=== PATIENT | male | born 1955 | race Caucasian/White ===

== ENCOUNTER 2017-04-13 20:20 | Emergency (ER) | payer BC ==
[~2017-04-13] VITALS: Ht 177.8 cm; Wt 86.8 kg
[~2017-04-13 20:20] MED LIST: ALEVE220 M2 PO; ALEVE220 MG PO; ASPIR-TRIN325 M1 PO; ATORVASTATIN CA80 MG PO; BACTRIM,SEPT1 TABLET PO; BAYER CHEWABLE81 MG PO; CHILDREN'S ASPI81 M1 PO; CILOSTAZOL100 MG PO; DIAZEPAM5 MG PO; Ecotrin PO; FLOMAX0.4 MG PO; GLIPIZIDE5 MG PO; GLUCOPHAGE1000 MG PO; GLUCOPHAGE500 MG PO; GLUCOTROL5 MG PO; Glucotrol PO; Habitrol,Nicoderm CQ TD; LEVITRA20 MG PO; LISINOPRIL40 MG PO; LISINOPRIL5 MG PO; LOPRESSOR25 MG PO; LORTAB 7.5/51 TABLET PO; LOSARTAN POTAS100 MG PO; METFORMIN HCL500 MG PO; METOPROLOL TART25 MG PO; NICOTINE PATCH1 EAC2 TD; NOHOMEMEDS; PEPTO BISMOL262 MG PO; PERCOCET 5/31 TABLET PO; PLAVIX75 MG PO; PRAVACHOL40 MG PO; PRAVACHOL80 MG PO; PRINIVIL20 MG PO; PROMETHAZINE HC25 M1 PO; TOPROL XL25 MG PO; TOPROL XL50 MG PO; TRADJENTA5 MG PO; VALIUM5 MG PO; WELLBUTRIN75 MG PO; Wellbutrin SR PO; ZESTRIL,PRINIVI10 M1 PO; Zocor PO
[2017-04-13] MEDS ORDERED: PERCOCET 5/31 TABLET PO (22:44)
[2017-04-13 22:56] VITALS: BP 135/109
== END 2017-04-13 22:57 | disposition home or self-care (01) ==
LOC: EME 20:20
DX: M79.89 Other specified soft tissue disorders (principal); M79.661 Pain in right lower leg; M54.9 Dorsalgia, unspecified; Z86.718 Personal history of other venous thrombosis and embolism; I10 Essential (primary) hypertension; E11.9 Type 2 diabetes mellitus without complications; Z79.84 Long term (current) use of oral hypoglycemic drugs; Z79.02 Long term (current) use of antithrombotics/antiplatelets; Z79.82 Long term (current) use of aspirin; F17.200 Nicotine dependence, unspecified, uncomplicated
CPT/HCPCS: 93971; 99281; 99284